=== PATIENT | male | born 1985 | race Caucasian/White ===

== ENCOUNTER 2023-02-26 10:47 | Emergency (ER) | payer OTHER ==
[~2023-02-26] VITALS: Ht 177.8 cm; Wt 83.9 kg
[~2023-02-26 10:47] MED LIST: ALBU90OI INH; Norco 5-325 Ta1 EACH PO
[2023-02-26 10:52] VITALS: BP 138/81
[2023-02-26] MEDS ORDERED: Flonase 0.05% N16 GM (10:55)
[2023-02-26] MEDS ORDERED: ZYRTEC10 M2 PO (10:55)
[2023-02-26] MEDS ORDERED: ALBU90OI INH (12:27)
[2023-02-26] MEDS ORDERED: IBUP800 PO (12:27)
== END 2023-02-26 12:33 | disposition home or self-care (01) ==
LOC: ER 10:47
DX: J06.9 Acute upper respiratory infection, unspecified (principal); Z79.899 Other long term (current) drug therapy
CPT/HCPCS: 71101; 96372; 99283-25; J1885